=== PATIENT | female | born 1950 | race Caucasian/White ===

== ENCOUNTER 2020-03-26 20:38 | Emergency (ER) | payer MEDICARE ==
--- NOTE | 2020-03-26 22:28 | CT ---
CT Head without IV contrast COMPARISON: None. HISTORY: Trauma TECHNIQUE: Axial CT imaging at 5 mm intervals from vertex through skull base without contrast FINDINGS: There is no evidence of an acute infarction, hemorrhage, mass effect, or midline shift. There is decr eased attenuation seen in the periventricular white matter which is nonspecific but likely attributable to chronic small vessel ischemic changes. There is mild cerebral volume loss. The ventri cular system is normal in size, shape, and position for the degree of sulcal atrophy. Visualized paranasal sinuses are clear. Osseous structures appear intact. No calvarial fracture is seen. Vascular calcifications are seen in the carotid siphons. IMPRESSION: 1. No acute intracranial abnormality demonstrated. additional findings
[2020-03-26] MEDS ORDERED: Ketorolac Tromethamine 30 MG/ML VIAL ONE (23:09)
--- NOTE | 2020-03-26 23:36 | RAD ---
EXAM: CHEST ONE VIEW HISTORY: Cough COMPARISON: None FINDINGS: Cardiac silhouette is magnified by projection. Pulmonary vasculature is at the upper limits of normal . No consolidation or pleural fluid is seen. The osseous structures are intact. IMPRESSION: No acute cardiopulmonary process.
== END 2020-03-27 00:20 | disposition home or self-care (01) ==
LOC: MADERS 20:38
DX: S06.0X0A Concussion without loss of consciousness, initial encounter (principal); S70.01XA Contusion of right hip, initial encounter; I10 Essential (primary) hypertension; Z79.899 Other long term (current) drug therapy; Y04.8XXA Assault by other bodily force, initial encounter
CPT/HCPCS: 70450; 71045; J1885